=== PATIENT | male | born 1980 | race Caucasian/White ===

== ENCOUNTER 2016-04-14 15:00 | Observation (INO) ==
[2016-04-14] MEDS ORDERED: ASPIRIN 325 MG TABLET PO STA (16:11)
[2016-04-14] MEDS ORDERED: ASPIRIN 325 MG TABLET ONE (16:12)
[2016-04-14 16:34] LABS: Basophils # 0.1 10*3/uL (0.0-0.2); Basophils % 0.7 % (0.0-0.8); Eosinophils # 0.4 10*3/uL (0.0-0.87); Eosinophils % 5.1 % (0.00-10.9); Hematocrit 45.4 VOL% (42.0-52.0); Hemoglobin 15.5 GM/DL (14.0-18.0); Immature Granulocytes % 0.4 %; Immature Granulocytes Absolute 0.03 #; Lymphocytes # 2.4 10*3/uL (1.4-4.0); Lymphocytes % 32.4 % (21.2-54.2); Mean Corpuscular HGB Conc 34.1 GM/DL (32-36); Mean Corpuscular Hemoglobin 29 PG (27-34); Mean Corpuscular Volume 84.9 FL (87-102); Mean Platelet Volume 9.9 FL (9.6-12.0); Monocytes # 0.9 10*3/uL (0.11-0.8); Monocytes % 12.6 % (1.7-12.7); Neutrophils # 3.6 10*3/uL (1.4-7.4); Neutrophils % 48.8 % (38.7-73.9); Platelet Count 187 10*3/uL (130-400); Red Blood Count 5.35 10*6/uL (3.8-5.5); Red Cell Distribution Width 13.6 % (9.3-17.3); White Blood Count 7.3 10*3/uL (4.5-13.71)
--- NOTE | 2016-04-14 16:43 | EKG Report ---
Stationary ECG Study [facility] Test Date: 04/14/2016 4:40:58 PM Pat Name: LOAN LOMAS Department: Room: Gender: M Photograph Finisher: : 1980 Requested by: Wendy Van Order Number: [id number] Reading MD: KORTNEY TESFAYE Intervals [place] Rate: 92 P: 65 WY: 151 QRS: 71 QRSD: 98 T: -18 QT: 347 QTc: 397 Interpretive Statements SINUS RHYTHM POSSIBLE INFERIOR MYOCARDIAL INFARCTION, OF INDETERMINATE AGE Electronically Signed On 04-14-16 17:09:16 COMPENSATION DIRECTOR by KORTNEY TESFAYE [email or web address]
--- NOTE | 2016-04-14 16:55 | XRay Report ---
XR chest 2V Indication: Chest pain. Chest 2 views: Comparison 06/30/2014. The heart size and mediastinal contour are normal. The lungs and pleural spaces are clear. Bones are unremarkable. Impression: Negative chest. PROCEDURE INTERPRETED AT [facility] DEPARTMENT OF RADIOLOGY Final Report Signed by: Colby Mcdonough M.D.
[2016-04-14 17:20] LABS: Alanine Aminotransferase 114 U/L (16-61); Albumin 3.7 G/DL (3.4-5.0); Alkaline Phosphatase 76 U/L (45-117); Aspartate Amino Transferase 107 U/L (0-37); Blood Urea Nitrogen 15 MG/DL (7-18); CKMB % 1.1 %; Calcium 8.9 MG/DL (8.5-10.1); Glucose 107 MG/DL (74-106); Osmolality,Calculated 283.1 MOS/KG (273-304); Potassium 3.9 MMOL/L (3.5-5.1); Sodium 142 MMOL/L (136-145); Total Protein 7.7 G/DL (6.4-8.3); Troponin I Only < 0.015 NG/ML (0.00-0.045)
[2016-04-14] MEDS ORDERED: SODIUM CHLORIDE 0.9% 1,000 ML IV STA (17:24)
--- NOTE | 2016-04-14 17:36 | Emergency Department Note ---
Arrival - Arrival Chief Complaint: Back Stated Complaint: NECK/BACK/CHEST DISCOMFORT ED Nursing Triage Note: Onset of neck and back pain since Monday while he was stretching. States he feels knots in his neck and back. Mode of Arrival: Ambulatory Source: Patient Time Seen by Provider: 04/14/16 15:54 - History of Present Illness HPI Narrative: 35 y/o white male presents to the ER stating "I feel like my back and neck is in knots". Symptoms started Monday. Yesterday patient states he started having intermittent anterior chest pain. Describes pain a sharp jolt last only seconds. Denies radiation of pain. Denies dyspnea, N/V, or diaphoresis. Past medical history significant for [place], cardiac stent, GERD, HTN, cholecystectomy. Primary Care Physician: Dr. Verdin. Onset (ago): day(s) (3) Severity: moderate Quality: cramping Allergies/Adverse Reactions: Allergies Allergy/AdvReac Type Severity Reaction Status Date / Time No Known Allergies Allergy Unverified 04/14/16 15:20 Review of System - Review of System 12 point system: reviewed and no additional remarkable complaints except as stated - Review of System Cardiovascular: Present: chest pain Musculoskeletal: Present: other (cramping ) Medical,Surgical,& Family Hx - Medical History Cardio: History of: Hypertension (Resolved) Gastrointestinal: History of: GERD - Social History Smoking Status: Unknown if ever smoked Frequency of Alcohol Use: Unknown Type of Drug Use: Unknown Exam Vital Signs: Vital Signs Temperature 98.7 F 04/14/16 15:11 Pulse Rate 91 H 04/14/16 15:11 Respiratory Rate 16 04/14/16 15:11 Blood Pressure 131/90 04/14/16 15:11 O2 Sat by Pulse Oximetry 98 04/14/16 15:11 - General General appearance: alert, in no apparent distress - ENT ENT exam: Present: normal exam, normal oropharynx, mucous membranes moist - Chest Chest inspection: Present: normal inspection - Respiratory Respiratory exam: Present: normal lung sounds bilaterally - Cardiovascular Cardiovascular exam: Present: regular rate, normal rhythm, normal heart sounds - Abdominal Exam Abdominal exam: Present: soft, normal bowel sounds. Absent: tenderness - Extremities Exam Extremities exam: Present: normal inspection, full ROM - Back Exam Back exam: Present: normal inspection, full ROM. Absent: tenderness - Neurological Exam Neurological exam: Present: alert, oriented X3 - Psychiatric Psychiatric exam: Present: normal affect, normal mood - Skin Skin exam: Present: warm, dry Course - Consultations Consultation #1: Dr. Violette Matias Time: 17:35 (Will admit to Dr. Matias ) Results - Labs CBC & BMP: 04/14/16 16:27 04/14/16 16:27 Lab Results: I have reviewed the patients labs - EKG EKG results: WNL - Diagnostic Findings Procedure: X-ray: image reviewed by me, report reviewed by me (CXR: no acute abnormality ) Disposition Clinical Impression: Elevated CPK, Chest pain Case discussed with: patient Disposition: Still a Patient
[2016-04-14 17:57] LABS: Apearance,Urine Slightly Hazy (Clear); Bilirubin,Urine Negative (Negative); Blood, Urine Small mg/dL (Negative); Glucose,Urine (UA) Negative (Negative); Ketones,Urine Negative (Negative); Mucus,Urine Occasional /LPF (Occasional); Nitrite,Urine Negative (Negative); Protein,Urine Negative; RBC,Urine 5 /HPF (0-4); Urine Color Yellow (Yellow); Urine Specific Gravity 1.021 (1.001-1.035); Urine Urobilinogen < 2.0 EU/DL (0.2-1.0); WBC,Urine 2 /HPF (0-6)
[2016-04-14 18:27] LABS: Myoglobin, Urine Negative (Negative)
[2016-04-14] MEDS ORDERED: ACETAMINOPHEN 325 MG TABLET PO PRN (20:46)
[2016-04-14] MEDS ORDERED: ONDANSETRON 4 MG/2 ML VIAL IV PRN (20:46)
[2016-04-14] MEDS: DOCUSATE SODIUM 100 MG CAPSULE PO SCH (22:09)
[2016-04-14] MEDS: SODIUM CHLORIDE 0.9% 1,000 ML IV SCH ×2 (22:11→23:15)
--- NOTE | 2016-04-14 22:13 | Internal Med History&Physical ---
Assessment and Plan (1) Chest pain Status: Acute Current Visit: Yes (2) Elevated CPK Status: Acute Current Visit: Yes History of Present Illness Chief complaint: chest pain History of present illness: Mr. Lind is a 35 year old male patient of Dr. Mark Verdin with history of CAD/IN/stent placement, acid reflux, who presented to ER reporting chest pain. He was found to have elevated CK level. 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 However, he has history of having IN at age 26, requiring stent placement. Home Medications Medication Instructions Recorded Confirmed Type Omeprazole 30 mg PO DAILY 04/14/16 04/14/16 History buPROPion [Wellbutrin] 50 mg PO DAILY 04/14/16 04/14/16 History Allergies Allergy/AdvReac Type Severity Reaction Status Date / Time No Known Allergies Allergy Unverified 04/14/16 15:20 Medical,Surgical,& Family Hx - Medical History Cardio: History of: CAD, Hypertension (Resolved), [place] Gastrointestinal: History of: GERD - Surgical History Abdominal Surgeries: Surgical HX of: Cholecystectomy - Family History Family History: Reports;: Family Heart Disease (close relative had IN at 40 years old) - Social History Smoking Status: Current every day smoker Frequency of Alcohol Use: None Type of Drug Use: None Marital Status: Lives With:: Spouse Functional capacity: independent ambulation - Cardiovascular Cardiovascular: Present: chest pain with activity - Musculoskeletal Musculoskeletal: Present: arthralgias, back pain Exam - Constitutional Vitals: Period Temp Pulse Resp BP Sys/Stevenson Pulse Ox Last 24 Hr 98.2 F 84 18 114/78 96 General appearance: no acute distress - Head Head exam: Present: normocephalic - Eye Eye exam: Present: EOMI - Neck Neck exam: Present: lymphadenopathy (right neck) - Respiratory Respiratory exam: Present: clear to auscultation bilaterally. Absent: rales, rhonchi, wheezes - Cardiovascular Cardiovascular exam: Present: regular rate and rhythm - GI/Abdominal GI/Abdominal exam: Present: normal bowel sounds, soft. Absent: tenderness - Extremities Exam Extremities exam: Absent: edema - Neurological Exam Neurological exam: Present: alert, oriented X3 - Psychiatric Psychiatric exam: Present: normal affect - Skin Skin exam: Present: warm, dry Results - Labs CBC & BMP: 04/14/16 16:27 04/14/16 16:27 - EKG EKG shows: sinus rhythm - Diagnostic Findings Procedure: Chest x-ray: report reviewed by me
[2016-04-14] MEDS ORDERED: IBUPROFEN 400 MG TABLET PO PRN (22:42)
[2016-04-14] MEDS: SODIUM CHLORIDE 0.45% 1,000 ML IV SCH (23:14)
[2016-04-15] MEDS ORDERED: TEMAZEPAM 15 MG CAPSULE PO PRN (00:42)
[2016-04-15] MEDS: SODIUM CHLORIDE 0.9% 1,000 ML IV SCH ×2 (05:07→16:28)
[2016-04-15 05:15] LABS: Basophils # 0.1 10*3/uL (0.0-0.2); Basophils % 0.8 % (0.0-0.8); Eosinophils # 0.4 10*3/uL (0.0-0.87); Hematocrit 42.8 VOL% (42.0-52.0); Hemoglobin 14.4 GM/DL (14.0-18.0); Immature Granulocytes % 0.5 %; Immature Granulocytes Absolute 0.03 #; Lymphocytes # 2.3 10*3/uL (1.4-4.0); Lymphocytes % 35.7 % (21.2-54.2); Mean Corpuscular HGB Conc 33.6 GM/DL (32-36); Mean Corpuscular Hemoglobin 29 PG (27-34); Mean Corpuscular Volume 85.1 FL (87-102); Mean Platelet Volume 9.7 FL (9.6-12.0); Monocytes # 1.1 10*3/uL (0.11-0.8); Monocytes % 16.5 % (1.7-12.7); Neutrophils # 2.7 10*3/uL (1.4-7.4); Neutrophils % 40.5 % (38.7-73.9); Platelet Count 169 10*3/uL (130-400); Red Blood Count 5.03 10*6/uL (3.8-5.5); Red Cell Distribution Width 13.8 % (9.3-17.3); White Blood Count 6.6 10*3/uL (4.5-13.71)
[2016-04-15 05:42] LABS: Eosinophils 6 % (0-10); Hypochromasia Slight; Lymphocytes 26 % (20-55); Platelet Estimate Normal; Segmented Neutrophils 53 % (50-85); Total Cells Counted 100
[2016-04-15 06:02] LABS: Albumin 3.3 G/DL (3.4-5.0); Bilirubin,Total 1.1 MG/DL (0.2-1.0); CKMB % 1.2 %; Calcium 8.1 MG/DL (8.5-10.1); Osmolality,Calculated 284.1 MOS/KG (273-304); Risk Ratio 6.81; Total Protein 6.5 G/DL (6.4-8.3); VLDL CHOLESTEROL 84.6 MG/DL
[2016-04-15] MEDS ORDERED: PANTOPRAZOLE 40 MG TABLET PO SCH (09:00)
[2016-04-15] MEDS ORDERED: buPROPion 100 MG TABLET PO SCH (09:00)
--- NOTE | 2016-04-15 09:18 | Cardiology Consult Note ---
<Angelika Bell - Last Filed: 04/15/16 09:36> Assessment and Plan - Time spent with patient Time spent with patient: Greater than 30 minutes (1) CAD (coronary artery disease) Status: Chronic Assessment and plan: No complaints of angina. History of stenting of obtuse marginal coronary artery many years ago. At this point, we will get him up to see Dr. Ayala for further cardiac testing is needed. Current Visit: Yes (2) Hyperlipidemia Status: Chronic Assessment and plan: Hyperlipidemia is chronic. Due to his elevated liver enzymes and CPK, CK-MB, we will hold off on initiating a lipid-lowering agent. When he follows up Dr. Santiago, can consider challenging him at that point Current Visit: Yes (3) Tobacco abuse Status: Chronic Assessment and plan: Greater than 5 minutes was spent today discussing the merits of tobacco cessation. Current Visit: Yes (4) Elevated CPK Status: Acute Current Visit: Yes (5) Chest pain Status: Acute Assessment and plan: Pain appears to be noncardiac in nature. Suspect this is a rhabdomyolysis picture. No active angina. Current Visit: Yes History of Present Illness - Data of Consult Patient: new to practice Consult date: 04/15/16 Requesting Physician: Violette Matias - Consult Narrative Reason for consult: elevated CPK, CK-MB History of present illness: Mr. Lind is a 35 year old male with a history of known CAD. He has been seen by Dr. Ayala in the past but not in many years. 2006 he reports having had VA. He required PCI-OM3. Risk factors include: tobaccoism. Past 3 days, patient has begun to experience intermittent muscle aches and cramping. Initially, he began in the left scapular area then progressed to the right scapular area. He had pain in his lower back, specifically left lower back which felt like a muscle cramp. He has been doing lots of stretching and bending over in order to relieve the soreness. Last evening, the cramping began to radiate toward the bilateral chest area. He is not having chest pain with exertion and is very active. Denies shortness of breath. Patient is not taking any cardiac medications or cholesterol medications. He stopped taking that many years ago. At one point, he was taking low-dose aspirin but it has been several years since he is taken this medication. Patient knowledge is that he has not been adequately hydrating for the last 6 or more weeks. Zambr[place] is easily accessible as it has been on his job and he works extremely hard as an electrician ship. Of note, he has been taking Hydroxycut daily for several months. Over the past one month he has been prescribed and is taking Wellbutrin. Also, patient is treating a hidradenitis by using Levaquin 750 mg. He has been taking this for approximately 4 days. This is an old prescription he had. He does have varicose veins worsen his right lower extremity. This is been of concern to him as well. They're nonpainful but do swell more on some days than others. He's also developed an enlargement on the right neck suspicious for lymph node enlargement or sebaceous cyst. Nontender and is round and mobile. He was treated approximately one month ago for a sinus infection and this has been present over the past several weeks. CPK, CK-MB elevated in a rhabdomyolysis-type fashion. Troponin is negative. EKG does not reveal acute event. Patient has no complaints of angina. Liver enzymes are mildly elevated but overnight have improved. I'll discuss this case with the extender. At this time, I'll order an ultrasound of his right neck to evaluate the abnormal enlargement. Patient will be restarted on aspirin. At this point, I feel no need to order an echocardiogram but we can arrange to have this performed outpatient. Holding lipid-lowering agents at this time as the patient may need this in his future but until his abnormal labs resolve administered. Blood pressure will not tolerate beta latha or LG inhibitor. He also needs referral for sleep abnormality including severe snoring with circumference of neck around 44 cm. Was scheduled for outpatient sleep evaluation with Dr. Cabrera. Tobacco cessation instruction occurred for greater than 5 minutes today. CC: Violette Matias, DO - Home Medications and Allergies Home Medications: Home Medications Medication Instructions Recorded Confirmed Type Omeprazole 30 mg PO DAILY 04/14/16 04/14/16 History buPROPion [Wellbutrin] 50 mg PO DAILY 04/14/16 04/14/16 History Allergies/Adverse Reactions: Allergies Allergy/AdvReac Type Severity Reaction Status Date / Time No Known Allergies Allergy Unverified 04/14/16 15:20 Review of systems: REVIEW OF SYSTEMS: - Constitutional Constitutional: Present: Sleep disorder. Absent: syncope, anorexia, night sweats - EENT Eyes: Absent: blurry vision, loss of vision, diplopia Ears: Absent: decreased hearing, ear pain, ear discharge - Cardiovascular Cardiovascular: Denies chest pain with exertion, dyspnea on exertion, edema, palpitations. Absent: chest pain with deep breath, claudication. Chest soreness reported - Respiratory Respiratory: Denies LR, cough. Absent: wheezing, hemoptysis, change in phlegm color - Gastrointestinal Gastrointestinal: Denies: constipation. Absent: Abdominal pain, hematemesis, hematochezia, melena, change in bowel habits, nausea - Genitourinary Genitourinary: Absent: difficulty urinating, dysuria, urinary hesitancy, flank pain - Musculoskeletal Musculoskeletal: Present: back pain and soreness, shoulder soreness, chest soreness Absent: joint swelling, muscle cramps, muscle weakness - Neurological Neurological: Present: normal gait without frequent falls. Absent: dizziness, hemiparesis - Psychiatric Psychiatric: Absent: anxiety, depression, difficulty concentrating - Endocrine Endocrine: Absent: cold intolerance, heat intolerance, polyuria, polyphagia, polydipsia - Hematologic/Lymphatic Hematologic/Lymphatic: Present: easy bruising. Absent: easy bleeding, easy bruisability -Integumentary Integumentary: Report lesion in left groin area. Absent: lesions, rashes, skin breakdown Medical,Surgical,& Family Hx - Medical History Cardio: History of: CAD, [place] Endocrine: History of: Dyslipidemia Gastrointestinal: History of: GERD - Surgical History Abdominal Surgeries: Surgical HX of: Cholecystectomy - Family History Family History: Reports;: Family Heart Disease (close relative had VA at 40 years old) - Social History Smoking Status: Current every day smoker Have you smoked in the last 12 months: Yes Time spent discussing smoking cessation with patient: 3 to 10 minutes Frequency of Alcohol Use: None Type of Drug Use: None Marital Status: Lives With:: Spouse Functional capacity: independent ambulation Physical Examination Vital Signs Temp Pulse Resp BP Pulse Ox 98.7 F 91 H 16 131/90 98 04/14/16 15:11 04/14/16 15:11 04/14/16 15:11 04/14/16 15:11 04/14/16 15:11 General: Appears well with no apparent distress. Pleasant and cooperative. Appears comfortable. HEENT: PERRL, normocephalic, atraumatic. Mucous membranes moist. No jaundice noted. Conjunctiva moist and clear, sclerae anicteric Neck: No JVD/HJR, no thyromegaly. Right neck marble size enlargement, nontender and mobile. No carotid bruit appreciated Cardiac: Regular rate and rhythm. No murmur rub or gallop. Lungs: Clear to auscultation without accessory muscle use to assist the respiratory pattern. Not requiring oxygen. Abdomen: Soft, bowel sounds normoactive. Nontender and nondistended. No abdominal bruit or thrill noted. No masses noted. Musculoskeletal: No fluid collection. Decreased range of motion is noted. Extremities: No clubbing, cyanosis noted. No edema noted. Upper extremity pulses 2+. Lower extremity pulses 2+. Capillary refill less than 3 seconds. Multiple varicosities noted right lower extremity. Skin: No unusual lesions or rashes. No skin breakdown appreciated. Neuro: Awake, alert and oriented 3. Moves all extremities well without hemiparesis or paralysis. No essential tremor is appreciated. Result/EKG - Labs CBC & BMP: 04/15/16 04:58 04/15/16 04:58 Lab Results: I have reviewed the past 24 hour labs Labs: Laboratory Results - last 24 hr 04/15/16 04/15/16 04:58 04:58 WBC 6.6 RBC 5.03 Hgb 14.4 Hct 42.8 MCV 85.1 L MCH 29 MCHC 33.6 RDW 13.8 Plt Count 169 MPV 9.7 Neut % (Auto) 40.5 Lymph % (Auto) 35.7 [place] % (Auto) 16.5 H Eos % (Auto) 6.0 Baso % (Auto) 0.8 Neut # (Auto) 2.7 Lymph # (Auto) 2.3 [place] # (Auto) 1.1 H Eos # (Auto) 0.4 Baso # (Auto) 0.1 Total Counted 100 Immature Gran % 0.5 Nucleated RBC % 0.0 Immature Gran # 0.03 Segmented Neutrophils 53 Lymphocytes 26 Monocytes 15 Eosinophils 6 Nucleated RBCs # 0.00 Platelet Estimate Normal Hypochromasia Slight Morphology Comment Sodium 142 Potassium 4.0 Chloride 106 Carbon Dioxide 27 Anion Gap 13.0 BUN 16 Creatinine 0.90 GFR Calculation 145 BUN/Creatinine Ratio 17.00 Glucose 111 H Calculated Osmolality 284.1 Calcium 8.1 L Magnesium 2.0 Total Bilirubin 1.10 H AST 87 H ALT 97 H Alkaline Phosphatase 64 Total Creatine Kinase 1248 H D CK-MB (CK-2) 15.1 H CK and CKMB Interp 1.2 Total Protein 6.5 Albumin 3.3 L Globulin 3.2 Albumin/Globulin Ratio 1.0 L Triglycerides 423 H Cholesterol 177 LDL Cholesterol 111.0 VLDL Cholesterol 84.6 HDL Cholesterol 26 L Heart Disease Risk Ratio 6.81 - Diagnostic Findings Procedure: Chest x-ray: report reviewed by me - EKG EKG results: interpreted by me EKG shows: sinus rhythm Specialty Discharge - Follow Up or Referrals - Discharge Medications No Action Omeprazole 30 mg PO DAILY buPROPion [Wellbutrin] 50 mg PO DAILY <Colby Martínezothy - Last Filed: 04/15/16 10:35> History of Present Illness - Consult Narrative History of present illness: Mr. Lind is a 35 year old male whom I personally interviewed and examined and reviewed his chart. I discussed this case with Angelika Bell NP. I agree with this evaluation. This patient's pain is noncardiac. He appears to have an element of rhabdomyolysis. Pain is muscle skeletal in nature. At this time no further cardiac evaluation is needed. We will set up a up appointment with Dr. Ayala to get reestablished in follow-up. His lipids are significantly elevated with a cholesterol 177 I'll the LDL 111 and an HDL of 26. He should be placed on a statin drug with his liver issue is clarified. As noted we will get reestablished with Dr. Ayala. CC: Violette Matias, DO Physical Examination Vital Signs Temp Pulse Resp BP Pulse Ox 98.7 F 91 H 16 131/90 98 04/14/16 15:11 04/14/16 15:11 04/14/16 15:11 04/14/16 15:11 04/14/16 15:11 Result/EKG - Labs CBC & BMP: 04/15/16 04:58 04/15/16 04:58 Labs: Laboratory Results - last 24 hr 04/15/16 04/15/16 04:58 04:58 WBC 6.6 RBC 5.03 Hgb 14.4 Hct 42.8 MCV 85.1 L MCH 29 MCHC 33.6 RDW 13.8 Plt Count 169 MPV 9.7 Neut % (Auto) 40.5 Lymph % (Auto) 35.7 [place] % (Auto) 16.5 H Eos % (Auto) 6.0 Baso % (Auto) 0.8 Neut # (Auto) 2.7 Lymph # (Auto) 2.3 [place] # (Auto) 1.1 H Eos # (Auto) 0.4 Baso # (Auto) 0.1 Total Counted 100 Immature Gran % 0.5 Nucleated RBC % 0.0 Immature Gran # 0.03 Segmented Neutrophils 53 Lymphocytes 26 Monocytes 15 Eosinophils 6 Nucleated RBCs # 0.00 Platelet Estimate Normal Hypochromasia Slight Morphology Comment Sodium 142 Potassium 4.0 Chloride 106 Carbon Dioxide 27 Anion Gap 13.0 BUN 16 Creatinine 0.90 GFR Calculation 145 BUN/Creatinine Ratio 17.00 Glucose 111 H Calculated Osmolality 284.1 Calcium 8.1 L Magnesium 2.0 Total Bilirubin 1.10 H AST 87 H ALT 97 H Alkaline Phosphatase 64 Total Creatine Kinase 1248 H D CK-MB (CK-2) 15.1 H CK and CKMB Interp 1.2 Total Protein 6.5 Albumin 3.3 L Globulin 3.2 Albumin/Globulin Ratio 1.0 L Triglycerides 423 H Cholesterol 177 LDL Cholesterol 111.0 VLDL Cholesterol 84.6 HDL Cholesterol 26 L Heart Disease Risk Ratio 6.81
[2016-04-15] MEDS: SODIUM CHLORIDE 0.45% 1,000 ML IV SCH ×2 (09:53→16:29)
[2016-04-15] MEDS: DOCUSATE SODIUM 100 MG CAPSULE PO SCH (09:54)
[2016-04-15] MEDS ORDERED: ASPIRIN CHEW 81 MG TABLET PO ONE (09:59)
[2016-04-15 12:23] VITALS: BP 136/70
--- NOTE | 2016-04-15 13:50 | Ultrasound Report ---
US soft tissue head and neck Clinical Information: Palpable lump lateral right neck Technique: Targeted ultrasound evaluation with grayscale, color Doppler and spectral analysis in the area of palpable concern at the right lateral neck was performed. Comparison: None Findings: In the right lateral neck, the area of palpable concern was investigated and there is a small ovoid hypoechoic lesion measuring 0.7 x 0.8 x 0.3 cm. There is faint suggestion of a central echogenic hilum and this may represent a nonenlarged lymph node. On color Doppler evaluation, there is blood flow noted within the lesion and spectral analysis demonstrates an arterial waveform. Heart rate is regular. No other acute or focal abnormality is identified in the area of palpable concern. Impression: Small subcentimeter hypoechoic lesion which is nonspecific in appearance but may represent a small lymph node in the area of palpable concern. There are no aggressive features visualized on the supplied images. A followup ultrasound can be obtained in 1-2 months to assess for stability. PROCEDURE INTERPRETED AT [facility] DEPARTMENT OF RADIOLOGY Final Report Signed by: Meir Bills
--- NOTE | 2016-04-15 14:05 | Consultation ---
Assessment and Plan - Time spent with patient Time spent with patient: Greater than 30 minutes Time spent discussing smoking cessation with patient: 3 to 10 minutes (1) Cervical lymphadenopathy Status: Acute Assessment and plan: Isolated 2 x 1 cm right posterior cervical level 5B cervical lymphadenopathy consistent with superior folliculitis history and recurrent skin infections. As this is improving I would continue to watch it I would like to see the patient in my office in 2 weeks for an evaluation ultrasound possible ultrasound -guided needle biopsy if no improvement is seen and upper respiratory endoscopy in stroboscopy to evaluate for any unlikely lesions. I would not increase or change the level of treatment if anything we could consider antibiotics such as amoxicillin but since it appears to be improving I think that the body is taking care of it. Thank you very much for this consultation I will sign off on this patient to remain available if there is any questions or concerns Current Visit: Yes (2) Folliculitis Status: Acute Current Visit: Yes (3) Tobacco abuse Status: Chronic Current Visit: Yes History of Present Illness - Data of Consult Patient: new to practice Consult date: 04/15/16 Requesting Physician: Violette Matias - Consult Narrative Reason for consult: Cervical lymphadenopathy History of present illness: Mr. Lind is a 35 year old male with a two-week history of right level 5B posterior cervical lymphadenopathy that is decreased in size some per patient with no known recent infections other than sinusitis. Additionally he is in the hospital because of a previous cardiac history and recent chest pains. He is a smoker which case smoking cessation and education was performed for 3 minutes. CC: Violette Matias, DO - Home Medications and Allergies Home Medications: Home Medications Medication Instructions Recorded Confirmed Type Omeprazole 30 mg PO DAILY 04/14/16 04/14/16 History buPROPion [Wellbutrin] 50 mg PO DAILY 04/14/16 04/14/16 History Allergies/Adverse Reactions: Allergies Allergy/AdvReac Type Severity Reaction Status Date / Time No Known Allergies Allergy Unverified 04/14/16 15:20 12 point system: reviewed and no additional remarkable complaints except as stated Medical,Surgical,& Family Hx - Medical History Cardio: History of: CAD, Hypertension (Resolved), [place] Endocrine: History of: Dyslipidemia Gastrointestinal: History of: GERD - Surgical History Abdominal Surgeries: Surgical HX of: Cholecystectomy - Family History Family History: Reports;: Family Heart Disease (close relative had [place] at 40 years old) - Social History Smoking Status: Current every day smoker Frequency of Alcohol Use: None Type of Drug Use: None Exam - Constitutional Vitals: Period Temp Pulse Resp BP Sys/Stevenson Pulse Ox Last 24 Hr 97.1 F-98.6 F 73-86 16-20 112-136/65-78 93-99 General appearance: normal weight, no acute distress - Head Head exam: Present: normal inspection, normocephalic - Eye Eye exam: Present: EOMI Pupils: Present: WILLIAM - ENT ENT exam: Present: normal exam, normal external ear exam, normal oropharynx - Neck Neck exam: Present: lymphadenopathy (1 x 2 cm right posterior level 5B cervical lymphadenopathy consistent with his posterior scalp folliculitis causing a normal drainage pattern and cervical lymphadenopathy that is improving I see no evidence of his previous sinusitis causing this. And this would be an abnormal location for a upper respiratory cancer to develop. I would like for him to follow-up in 2 weeks for more evaluation in the office) - GI/Abdominal GI/Abdominal exam: Present: soft - Extremities Exam Extremities exam: Present: normal inspection, normal capillary refill - Back Exam Back exam: Present: normal inspection - Neurological Exam Neurological exam: Present: alert, oriented X3, CN II-XII intact - Psychiatric Psychiatric exam: Present: normal affect, normal mood - Skin Skin exam: Present: normal color, warm Results - Labs CBC & BMP: 04/15/16 04:58 04/15/16 04:58 Lab Results: I have reviewed the past 24 hour labs - Diagnostic Findings Procedure: Ultrasound: pending Specialty Discharge - Follow Up or Referrals - Discharge Medications No Action Omeprazole 30 mg PO DAILY buPROPion [Wellbutrin] 50 mg PO DAILY
--- NOTE | 2016-04-15 15:49 | ECHO Report ---
Geovany Lind Exam Date: 04/15/2016 11:56 Referring Physician: Technologist: Delmi Negron RDCS Age: 35 Ht (in): Wt (lb): Gender: M Exam Location: [facility] Echo Indications: Chest pain, unspecified, CAD with previous stent, Hyperlipidemia, unspecified, Nicotine dependence, unspecified, uncomplicated, Elevated CPK BP: / HR: Rhythm: Sinus Technical Quality: Good IMPRESSIONS 1. Left that was normal size systolic function and with normal ejection fraction of 55%. 2. Other cardiac chambers normal size and function. 3. Valve structures or anatomically functioning normal. 4. Overall this is a normal study. MEASUREMENTS (Male / Female) Normal Values 2D ECHO LV Diastolic Diameter PLAX 5.1 cm 4.2 - 5.9 / 3.9 - 5.3 cm LV Systolic Diameter PLAX 3.6 cm LV Fractional Shortening PLAX 30.5 % IVS Diastolic Thickness 0.8 cm 0.6 - 1.0 / 0.6 - 0.9 cm LVPW Diastolic Thickness 0.8 cm 0.6 - 1.0 / 0.6 - 0.9 cm RV Internal Dim ED PLAX 2.9 cm Aortic Root Diameter 3.5 cm LA Systolic Diameter LX 3.8 cm 3.0 - 4.0 / 2.7 - 3.8 cm FINDINGS Left Ventricle Normal left ventricular cavity size. Normal left ventricular wall thickness. Left ventricular ejection fraction is estimated at 55 %. Right Ventricle The right ventricle is normal in size and function. Right Atrium The right atrium is normal in size. Left Atrium The left atrium is normal in size. Mitral Valve Morphologically normal mitral valve without significant stenosis or prolapse. There is no mitral regurgitation. Aortic Valve Morphologically normal aortic valve without significant sclerosis or stenosis. There is no aortic regurgitation. Tricuspid Valve Morphologically normal tricuspid valve without significant stenosis or regurgitation. Pulmonary artery systolic pressure is normal. Pulmonic Valve Morphologically normal pulmonic valve without significant stenosis. There is no pulmonic regurgitation. Pericardium Normal pericardium without effusion. Aorta Normal ascending aorta dimension. Colby Martínez MD (Electronically Signed) Final Date: 15 April 2016 15:48
--- NOTE | 2016-04-15 16:23 | Internal Med Progress Note ---
Assessment and Plan (1) Chest pain Status: Acute (2) Elevated CPK Status: Acute (3) Cervical lymphadenopathy Status: Chronic Internal Medicine - PN: Subj Interval history: Mr. Lind is a 35 year old male patient of Dr. Mark Verdin with history of CAD/FL/stent placement, acid reflux, who presented to ER reporting chest pain. He was found to have elevated CK level. 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 However, he has history of having FL at age 26, requiring stent placement. Today, seen on rounds and he reports feeling better and chest pain improved. CK level improved and patient would like to be discharged to home and follow up with Dr. Verdin in clinic. He has been seen by Dr. Schumacher today regarding right lateral neck lymph node. This will be followed up outpatient as well. Exam (Progress Note) - Constitutional Vitals: Period Temp Pulse Resp BP Sys/Stevenson Pulse Ox Last 24 Hr 97.1 F-98.6 F 73-86 16-20 112-136/65-78 93-99 Exam: General appearance: no acute distress - Neck Neck exam: Present: lymphadenopathy (right neck) - Respiratory Respiratory exam: Present: clear to auscultation bilaterally. - Cardiovascular Cardiovascular exam: Present: regular rate and rhythm - GI/Abdominal GI/Abdominal exam: Present: normal bowel sounds, soft. - Extremities Exam Extremities exam: Absent: edema Vitals reviewed Results - Labs CBC & BMP: 04/15/16 04:58 04/15/16 04:58 Specialty Discharge - Follow Up or Referrals Follow up with: Otoniel Schumacher DO [Physician] - 05/02/16 10:30 am Mark Verdin MD [Physician] - 05/09/16 9:45 am Isabel Ayala DO [Physician] - 05/19/16 2:10 pm - Discharge Medications New Acetaminophen Tab [Tylenol Tab] 650 mg PO Q6H PRN #0 tablet PRN Reason: Fever > 100.4 Or Headache Amoxicillin/Clav Tab [Augmentin Tab] 500 mg PO BID #20 tablet Aspirin EC Tab 81 mg PO DAILY tablet Docusate Sodium Cap [Colace Cap] 100 mg PO BID capsule Ibuprofen Tab [Motrin Tab] 400 mg PO Q4H PRN #0 tablet PRN Reason: Pain Continue Omeprazole 30 mg PO DAILY buPROPion [Wellbutrin] 50 mg PO DAILY
--- NOTE | 2016-04-15 16:23 | Discharge Summary ---
Hospital Course - Hospital Course Hospital Course: Mr. Lind is a 35 year old male patient of Dr. Mark Verdin with history of CAD/PR/stent placement, acid reflux, who presented to ER reporting chest pain. He was found to have elevated CK level. 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 However, he has history of having PR at age 26, requiring stent placement. CK level and liver function enzymes, also elevated, have trended downward overnight with fluids, and he is feeling better and would like to go home. He will need to be re-established with Cardiology for further and future follow up outpatient. He understands the need to pursue adequate hydration while on his job, and to pursue a low fat diet. Triglycerides are significantly elevated. Diagnosis - Discharge Diagnosis (1) Chest pain Status: Acute (2) Elevated CPK Status: Acute (3) Dyslipidemia Status: Chronic (4) Folliculitis Status: Chronic (5) CAD (coronary artery disease) Status: Chronic (6) Tobacco abuse Status: Chronic (7) Cervical lymphadenopathy Status: Chronic Specialty Discharge - Follow Up or Referrals Follow up with: Otoniel Schumacher DO [Physician] - 05/02/16 10:30 am Mark Verdin MD [Physician] - 05/09/16 9:45 am Isabel Ayala DO [Physician] - 05/19/16 2:10 pm - Discharge Medications New Acetaminophen Tab [Tylenol Tab] 650 mg PO Q6H PRN #0 tablet PRN Reason: Fever > 100.4 Or Headache Amoxicillin/Clav Tab [Augmentin Tab] 500 mg PO BID #20 tablet Aspirin EC Tab 81 mg PO DAILY tablet Docusate Sodium Cap [Colace Cap] 100 mg PO BID capsule Ibuprofen Tab [Motrin Tab] 400 mg PO Q4H PRN #0 tablet PRN Reason: Pain Continue Omeprazole 30 mg PO DAILY buPROPion [Wellbutrin] 50 mg PO DAILY Discharge Plan - Discharge Data Disposition: Disch To Home/Self Care Condition at Discharge: Stable Activity: increase activity as tolerated - Discharge Medications New Acetaminophen Tab [Tylenol Tab] 650 mg PO Q6H PRN #0 tablet PRN Reason: Fever > 100.4 Or Headache Amoxicillin/Clav Tab [Augmentin Tab] 500 mg PO BID #20 tablet Aspirin EC Tab 81 mg PO DAILY tablet Docusate Sodium Cap [Colace Cap] 100 mg PO BID capsule Ibuprofen Tab [Motrin Tab] 400 mg PO Q4H PRN #0 tablet PRN Reason: Pain Continue Omeprazole 30 mg PO DAILY buPROPion [Wellbutrin] 50 mg PO DAILY - Follow Up or Referral Follow Up: Otoniel Schumacher DO [Physician] - 05/02/16 10:30 am Mark Verdin MD [Physician] - 05/09/16 9:45 am Isabel Ayala DO [Physician] - 05/19/16 2:10 pm - Forms/Instructions Instructions: Low Fat Diet (DC), Heart Healthy Diet (DC) Additional Discharge Instructions: Follow up with Dr. Schumacher in clinic within the next 2-3 weeks. Follow up with Dr. Praveen Verdin in the next 1-2 weeks. He has expressed interest in seeing Dr. Martínez. Please set up appointment next available with Dr. Martínez in clinic. Exam - Constitutional Vitals: Period Temp Pulse Resp BP Sys/Stevenson Pulse Ox Last 24 Hr 97.1 F-98.6 F 73-86 16-20 112-136/65-78 93-99 General appearance: no acute distress - Respiratory Respiratory exam: Present: clear to auscultation bilaterally - Cardiovascular Cardiovascular exam: Present: regular rate and rhythm - GI/Abdominal GI/Abdominal exam: Present: other. Absent: tenderness - Extremities Exam Extremities exam: Absent: edema - Neurological Exam Neurological exam: Present: alert - Psychiatric Psychiatric exam: Present: normal mood - Skin Skin exam: Present: warm, dry Discharge Results Labs on day of discharge: Labs from last 24 hours 04/15/16 04/15/16 04:58 04:58 WBC 6.6 RBC 5.03 Hgb 14.4 Hct 42.8 MCV 85.1 L MCH 29 MCHC 33.6 RDW 13.8 Plt Count 169 MPV 9.7 Neut % (Auto) 40.5 Lymph % (Auto) 35.7 [place] % (Auto) 16.5 H Eos % (Auto) 6.0 Baso % (Auto) 0.8 Neut # (Auto) 2.7 Lymph # (Auto) 2.3 [place] # (Auto) 1.1 H Eos # (Auto) 0.4 Baso # (Auto) 0.1 Total Counted 100 Immature Gran % 0.5 Nucleated RBC % 0.0 Immature Gran # 0.03 Segmented Neutrophils 53 Lymphocytes 26 Monocytes 15 Eosinophils 6 Nucleated RBCs # 0.00 Platelet Estimate Normal Hypochromasia Slight Morphology Comment Sodium 142 Potassium 4.0 Chloride 106 Carbon Dioxide 27 Anion Gap 13.0 BUN 16 Creatinine 0.90 GFR Calculation 145 BUN/Creatinine Ratio 17.00 Glucose 111 H Calculated Osmolality 284.1 Calcium 8.1 L Magnesium 2.0 Total Bilirubin 1.10 H AST 87 H ALT 97 H Alkaline Phosphatase 64 Total Creatine Kinase 1248 H D CK-MB (CK-2) 15.1 H CK and CKMB Interp 1.2 Total Protein 6.5 Albumin 3.3 L Globulin 3.2 Albumin/Globulin Ratio 1.0 L Triglycerides 423 H Cholesterol 177 LDL Cholesterol 111.0 VLDL Cholesterol 84.6 HDL Cholesterol 26 L Heart Disease Risk Ratio 6.81 DS: Provider Date of admission: 04/14/16 18:31 Primary care physician: . No PCP Attending physician on admission: Violette Matias DO Consults: 04/14/16 20:46 Consult to Case Mgmt/Social Srvs [CONS] Routine Reason for Case Mgmt/Social Srvs: Discharge Planning Consult to Physician [CONS] Routine Comment: Chest Pain, CAD, Elevated CPK Consulting Provider: Isabel Ayala Consult to Specialist Group: Cardiology Consult Notification Comment: [facility] CLOSED MONDAY DUE TO WEATHER 04/14/16 23:01 Consult to Physician [CONS] Routine Comment: right neck lump Consulting Provider: Otoniel Schumacher Consult to Specialist Group: ENT Person Notified: IRAM Date Notified: 04/15/16 Time Notified: 08:25 04/15/16 11:11 Consult to Sleep Center [CONS] Routine Reason for Sleep Center: Sleep Center Physician Consult Comment: OUTPT. SLEEP MEDICINE EVAL. Discharging clinician: Violette Matias DO Expected date of discharge: 04/15/16
[2016-04-16] MEDS ORDERED: ASPIRIN EC 81 MG TABLET PO SCH (09:00)
== END 2016-04-15 19:40 | disposition home or self-care (01) ==
LOC: N.EDINP 15:00 → N.ED 15:00 → N.TELES 20:20
PROVIDERS: ADMIT Internal Medicine; ATTEND Internal Medicine